=== PATIENT | male | born 1960 | race Caucasian/White ===

== ENCOUNTER 2022-01-14 17:55 | Emergency (ER) | payer OTHER ==
[2022-01-14 18:37] LABS: BASOPHIL 0.9 % (0-2); EOSINOPHIL 1.4 % (0-5); HGB 16.2 g/dl (13.2-18.0); LYMPHOCYTE 35.3 % (15-48); MCHC 34.5 g/dL (32.0-36.0); MCV 92.7 fL (78.0-100.0); MONOCYTE 9.2 % (0-12); MPV 10.3 fL (6.0-9.5); NRBC 0; PLT 289 K/uL (150-400); RBC 5.07 M/uL (4.70-6.00); RDW 11.8 % (11.5-14.0); WBC 8.4 K/uL (4.0-10.5)
[2022-01-14 18:49] LABS: INR 0.97 (0.9-1.2); PROTHROMBIN TIME 12.6 SECONDS (11.9-13.9); PTT 26.4 SECONDS (24.9-34.6)
[2022-01-14 19:14] LABS: ALBUMIN 3.9 g/dL (3.4-5.0); BILIRUBIN - TOTAL 0.3 mg/dL (0.2-1.0); CREATININE 1.12 mg/dL (0.67-1.17); GLOBULIN (CALCULATION) 3.8 g/dL; TOTAL PROTEIN 7.7 g/dL (6.4-8.2)
[2022-01-14 20:14] LABS: BILIRUBIN NEGATIVE (NEGATIVE); BLOOD NEGATIVE Ery/uL (NEGATIVE); CLARITY CLEAR (CLEAR); COLOR YELLOW (YELLOW); GLUCOSE (U) NORMAL (NORMAL); LEUKOCYTES NEGATIVE Leu/uL (NEGATIVE); NITRITE NEGATIVE (NEGATIVE); PROTEIN NEGATIVE (NEGATIVE); SPECIFIC GRAVITY 1.015 (1.001-1.030); UROBILINOGEN 0.2 mg/dL (0.2-1.0)
[2022-01-14] MEDS ORDERED: CARDIZEM30 MG PO (22:20)
== END 2022-01-14 22:57 | disposition home or self-care (01) ==
LOC: FER 17:55
PROVIDERS: Emergency Medicine
DX: I48.0 Paroxysmal atrial fibrillation (principal); Z20.822 Contact with and (suspected) exposure to COVID-19
CPT/HCPCS: 36415; 71045; 80053; 81003; 84443; 84484; 85025; 85610; 85730; 93005; U0002